=== PATIENT | female | born 1955 | race Caucasian/White ===

== ENCOUNTER 2022-05-31 18:55 | Emergency (ER) | payer MEDICARE, SELFPAY ==
[2022-05-31] VITALS (15 sets, daily range): BP systolic 180–218; BP diastolic 98–133; PULSE 90–105; RESP 16–22; TEMP 36.5; O2SAT 91–99; BMI 25.8
--- NOTE | 2022-05-31 19:03 | ECG_ITS ---
APPROVED REPORT Exam: Resting ECG HR:115 bpm ECG Measurements Heart Rate 115 AXES OR 150 P 52 QRSd 104 QRS 40 QT 348 T 51 QTc 416 Conclusion SINUS TACHYCARDIA INCOMPLETE RIGHT BUNDLE BRANCH BLOCK [90+ ms QRS DURATION, TERMINAL R IN V1/V2, 40+ ms S IN I/aVL/V4/V5/V6] ABNORMAL RHYTHM ECG UNCONFIRMED REPORT Electronically signed by : Marvin Blakely MD 06/02/2022 09:33:04
--- NOTE | 2022-05-31 19:14 | HMH.EDGENADL ---
ED Disposition Condition on Discharge: Fair - Critical Care Critical Care Time: No <Cullen Lugo - Last Filed: 05/31/22 20:12> Condition on Discharge: Fair - Critical Care Critical Care Time: No <Raimundo Nesbitt - Last Filed: 06/01/22 01:05> Clinical Impression: Vertigo Hypertension Qualifiers: Hypertension type: unspecified Qualified Code(s): I10 - Essential (primary) hypertension Disposition: Still a Patient Prescriptions: lisinopriL [Lisinopril] 10 mg PO DAILY #30 tab Prescription Printed Referrals: Provider,Referral, [Primary Care Provider] - Attestation: On 05/31/22, the high probability of a clinically significant, sudden or life threatening deterioration of the following system(s) required my full and direct attention, intervention and personal management. The time I documented below is in addition to time spent performing reported procedures but includes the following listed in this critical care notation. Medical Decision Making - Richard Inquiry Pt receiving controlled substance: No - Lab Data Result diagrams: 05/31/22 19:22 05/31/22 19:22 - Reevaluation(s) Time: 19:35 <Cullen Lugo - Last Filed: 05/31/22 20:12> - Lab Data Result diagrams: 05/31/22 19:22 05/31/22 19:22 <Raimundo Nesbitt - Last Filed: 06/01/22 01:05> Vital Signs: 05/31/22 18:56 05/31/22 19:07 05/31/22 19:13 Temperature 97.7 F Temperature Source Oral Pulse Rate 105 H 104 H Pulse Rate [Right] 104 H Respiratory Rate 18 19 Blood Pressure 213/126 H 218/133 H Blood Pressure [Right Arm] 218/133 H Blood Pressure Mean 168 165 Blood Pressure Mean [Right Arm] 161 02 Sat by Pulse Oximetry 98 99 99 Oxygen Delivery Method Room Air 05/31/22 19:30 05/31/22 19:36 05/31/22 20:30 Temperature Temperature Source Pulse Rate 94 H 90 95 H Pulse Rate [Right] Respiratory Rate 16 16 21 Blood Pressure 180/107 H 197/111 H 193/106 H Blood Pressure [Right Arm] Blood Pressure Mean 159 152 Blood Pressure Mean [Right Arm] 02 Sat by Pulse Oximetry 96 94 L 91 L Oxygen Delivery Method Room Air 05/31/22 21:00 05/31/22 21:30 05/31/22 22:00 Temperature Temperature Source Pulse Rate 90 91 H 98 H Pulse Rate [Right] Respiratory Rate 16 17 18 Blood Pressure 205/107 H 207/109 H 208/113 H Blood Pressure [Right Arm] Blood Pressure Mean Blood Pressure Mean [Right Arm] 02 Sat by Pulse Oximetry 98 95 94 L Oxygen Delivery Method Room Air Room Air Room Air 05/31/22 22:30 05/31/22 22:52 05/31/22 23:00 Temperature Temperature Source Pulse Rate 99 H 98 H 98 H Pulse Rate [Right] Respiratory Rate 20 22 21 Blood Pressure 205/98 H 217/117 H 205/108 H Blood Pressure [Right Arm] Blood Pressure Mean Blood Pressure Mean [Right Arm] 02 Sat by Pulse Oximetry 93 L 94 L 94 L Oxygen Delivery Method Room Air Room Air Room Air 05/31/22 23:30 05/31/22 23:45 05/31/22 23:54 Temperature Temperature Source Pulse Rate 95 H 105 H Pulse Rate [Right] Respiratory Rate 18 18 Blood Pressure 204/108 H 217/117 H 217/117 H Blood Pressure [Right Arm] Blood Pressure Mean Blood Pressure Mean [Right Arm] 02 Sat by Pulse Oximetry 95 93 L Oxygen Delivery Method Room Air Room Air 06/01/22 00:00 06/01/22 00:30 Temperature Temperature Source Pulse Rate 81 92 H Pulse Rate [Right] Respiratory Rate 15 20 Blood Pressure 185/102 H 201/105 H Blood Pressure [Right Arm] Blood Pressure Mean Blood Pressure Mean [Right Arm] 02 Sat by Pulse Oximetry 94 L 94 L Oxygen Delivery Method Room Air Room Air - Lab Data Lab Results 05/31/22 19:22: WBC 16.2 H, RBC 4.64, Hgb 13.2, Hct 43.2, MCV 93.0, MCH 28.4, MCHC 30.6 L, RDW 16.8, Plt Count 358, MPV 8.2, Neut % (Auto) 67.2, Lymph % (Auto) 26.0, Tift % (Auto) 4.3, Eos % (Auto) 1.6, Baso % (Auto) 0.9, Neut # (Auto) 10.9 H, Lymph # (Auto) 4.2, Tift # (Auto) 0.7, Eos # (Auto) 0.3, Baso # (Aut
--- NOTE | 2022-05-31 19:19 | PC.NURSE ---
at BS speaking with pt about POC.
--- NOTE | 2022-05-31 19:20 | CT_ITS ---
PROCEDURE INFORMATION: Exam: CT Head Without Contrast Exam date and time: 05/31/2022 7:41 PM Age: 66 years old Clinical indication: Other: High blood pressure; Additional info: Vertigo, vomiting, fingers tingling, high BP TECHNIQUE: Imaging protocol: Computed tomography of the head without contrast. Radiation optimization: All CT scans at this facility use at least one of these dose optimization techniques: automated exposure control; mA and/or kV adjustment per patient size (includes targeted exams where dose is matched to clinical indication); or iterative reconstruction. COMPARISON: No relevant prior studies available. FINDINGS: Brain: Normal brain without acute hemorrhage, midline shift, mass effect, or extra-axial collections. Mild intracranial atherosclerosis. Cerebral ventricles: Normal size to the ventricular system. Normal variant cavum septum pellucidum. Paranasal sinuses: Partially visualized right maxillary sinus retention cyst. Paranasal sinuses otherwise clear. Mastoid air cells: Mastoids clear. Orbital cavities: Normal orbits. Bones/joints: Normal bones. Soft tissues: Normal soft tissues. IMPRESSION: No acute intracranial pathology.
[2022-05-31 19:31] LABS: Basophils # 0.2 K/mm3 (0-0.2); Basophils % 0.9 % (0.1-2.0); Eosinophils # 0.3 K/mm3 (0.0-0.4); Eosinophils % 1.6 % (0.1-12.0); Hematocrit 43.2 % (37.0-47.0); Hemoglobin 13.2 g/dL (12.2-16.2); Lymphocytes # 4.2 K/mm3 (0.7-4.5); Mean Corpuscular HGB Conc 30.6 g/dL (31.8-35.4); Mean Corpuscular Hemoglobin 28.4 pg (27.0-31.2); Mean Platelet Volume 8.2 fl (7.4-10.4); Monocytes # 0.7 K/mm3 (0.1-1.0); Monocytes % 4.3 % (1.7-9.3); Neutrophils # 10.9 K/mm3 (1.8-7.8); Neutrophils % 67.2 % (37.0-80.0); Platelet Count 358 K/mm3 (142-424); Red Blood Count 4.64 M/mm3 (4.20-5.40); Red Cell Distribution Width 16.8 % (11.5-17.5); White Blood Count 16.2 K/mm3 (4.8-10.8)
[2022-05-31 19:39] LABS: MANUAL DIFFERENTIAL MANUAL DIFFERENTIAL (MANUAL DIFF)
[2022-05-31 19:43] LABS: Alanine Aminotransferase 16 U/L (12-78); Albumin Level 4.5 g/dl (3.5-5.0); Albumin/Globulin Ratio 1.4 (1.1-1.8); Alkaline Phosphatase 140 U/L (38-126); Anion Gap 12.3 mEq/L (5-15); Aspartate Amino Transferase 23 U/L (14-36); Blood Urea Nitrogen 13 mg/dl (7-17); Calcium 9.9 mg/dl (8.4-10.2); Carbon Dioxide 23 mmol/L (22.0-30.0); Chloride 108 mmol/L (98-107); Creatinine Clearance Estimated 65 mL/min (50-200); Estimated Glomerular Filt Rate 72 ml/min (>60); GFR (African American) 87 ML/MIN (>60); Globulin 3.2 g/dL (1.3-3.2); Glucose 145 mg/dl (74-100); Potassium 3.3 mmoL/L (3.5-5.1); Sodium 140 mmol/L (136-145); Total Protein,Serum 7.7 g/dl (6.3-8.2)
[2022-05-31 19:51] LABS: Bilirubin,Total 0.1 mg/dl (0.2-1.3)
[2022-05-31 19:52] LABS: Hypochromasia 2+; Lymphocytes % 24 % (10-50); Monocytes % 3 % (2-9); Neutrophils % 72 % (42-76); Platelet Estimate Normal; Total Cells Counted 100
[2022-05-31 19:56] LABS: Troponin I < 0.01 ng/ml (0.00-0.034)
--- NOTE | 2022-05-31 22:52 | PC.NURSE ---
PT ambulatory to bathroom with minimal assistance.
[2022-05-31 23:21] LABS: Troponin I < 0.01 ng/ml (0.00-0.034)
[2022-06-01] VITALS: BP 185/102; PULSE 81; RESP 15; O2SAT 94
[2022-06-01 00:30] VITALS: BP 201/105; PULSE 92; RESP 20; O2SAT 94
--- NOTE | 2022-06-01 00:46 | PC.NURSE ---
Pt resting in bed. Pt voiced no new needs or complaints. Visitor at BS.
[2022-06-01 01:17] VITALS: BP 176/100; PULSE 86; RESP 16; TEMP 37; O2SAT 97
== END 2022-06-01 01:21 | disposition still patient (30) ==
PROVIDERS: Emergency Provider Emergency Medicine
DX: I10 Essential (primary) hypertension (principal)
CPT/HCPCS: 70450; 80053; 84484; 85007; 85025; 93005; 96374; 96375; 99284; J2405

== ENCOUNTER 2023-05-20 19:40 | Emergency (ER) | payer MEDICARE, SELFPAY ==
[2023-05-20 19:41] VITALS: BP 154/84; PULSE 77; RESP 16; TEMP 36.6; O2SAT 95; BMI 25.8
--- NOTE | 2023-05-20 20:04 | EXP.UTC ---
Discharge Plan Disposition Patient Disposition: Home, Self-Care Condition: Good Prescriptions Prescriptions: New amoxicillin [amoxicillin] 875 mg tablet 875 mg PO Q12H Qty: 20 0RF methylprednisolone 4 mg Tablets,Dose Pack 4 mg PO DIRECTED Qty: 21 0RF No Action lisinopril 10 MG tablet 10 mg PO DAILY Qty: 30 0RF Referrals Follow up/Referrals: Marvin Blakely MD [Primary Care Provider] - See instructions Activity Restrictions/Add. Instructions Additional Instructions/Restrictions: Drink plenty of fluids. Take tylenol or ibuprofen for pain or fever. Take the medications as directed. Follow up with your regular doctor. GO TO THE ER FOR ANY WORSENING SYMPTOMS Throw your tooth brush away and get a new one. Clinical Impressions Clinical Impression: Strep throat Instructions Patient Instructions: Strep Throat, DI for Strep Throat Discharge ED Provider: Saw Johnson [facility] General Stated complaint: trouble eating, neck swollen Mode of Arrival: Ambulatory Source of Information: Patient Limitations: No Limitations Time Seen by Provider: 05/20/23 20:04 Description of Symptoms (Recalled from Triage Doc. by RN): Patient reports sore throat and left ear pain and swollen neck for a couple of days. HEENT Symptoms (Recalled from RN notes): Yes Resp Symptoms (Recalled from RN notes): No Skin Symptoms (Recalled from RN notes): No MS Symptoms (Recalled from RN notes): No Functional Status (Recalled from RN notes): wnl History of Present Illness Provider Complaint: She states that for the past 2 days she has had right ear pain, sore throat and swelling of the lymph nodes in her neck. Related Data Previous Rx's Medication Instructions Recorded lisinopril 10 mg tablet 10 mg PO DAILY #30 tabs 06/01/22 amoxicillin 875 mg tablet 875 mg PO Q12H #20 tabs 05/20/23 methylprednisolone 4 mg tablets in 4 mg PO DIRECTED #21 tabs 05/20/23 a dose pack Allergies Allergy/AdvReac Type Severity Reaction Status Date / Time No Known Allergies Allergy Verified 05/31/22 19:24 Worker's Comp Is this a Worker's Comp case?: No [facility] Disclaimer: The information contained in this section may have been updated after the patient was seen, as this information can be updated by other users. Social History Smoking Status: Former smoker alcohol intake: never current occupational status: retired Travel in the last 8 weeks: None ROS Obtained: Yes All systems reviewed & no additional complaints except as documented Constitutional Constitutional: Reports chills and Reports fever(s) Eyes Eyes: Denies eye discharge ENT Ears, Nose, Mouth, and Throat: Reports as per HPI Cardiovascular Cardiovascular: Denies chest pain Respiratory Respiratory: Denies chest congestion and Reports cough Gastrointestinal Gastrointestingal: Reports nausea; Denies abdominal pain, constipation, cramping, diarrhea or vomiting Musculoskeletal Musculoskeletal: Denies arthralgias Integumentary/Breasts Skin/Breast: Denies rash Neurologic Neurologic: Denies paresthesias Physical Exam General General appearance: alert and in no apparent distress Head Head exam: atraumatic, normocephalic and normal inspection Eye Eye exam: Present normal appearance, PERRL and EOMI ENT ENT exam: Present mucous membranes moist and normal external ear exam Expanded ENT Exam TM/Canal exam: Bilateral TM: erythema and bulging Nose exam: Absent sinus tenderness Mouth exam: Present normal external inspection; Absent drooling Teeth exam: Present normal inspection Throat exam: Present tonsillar erythema, tonsillomegaly and tonsillar exudate Neck Neck exam: Present normal inspection, full ROM and trachea midline; Absent tenderness, meningismus or lymphadenopathy Chest Chest inspection: Present normal inspection and symmetric chest wall rise; Absent tenderness Respiratory Respiratory exam
[2023-05-20 20:05] LABS: UTC Strep Screen (Rapid) Positive (Negative)
[2023-05-20 20:15] VITALS: BP 154/84; PULSE 77; RESP 16; TEMP 36.6; O2SAT 95
== END 2023-05-20 20:16 | disposition home or self-care (01) ==
PROVIDERS: Emergency Provider Nurse Practitioner Family; PCP Internal Medicine Adolescent Medicine
DX: J02.0 Streptococcal pharyngitis (principal); H92.01 Otalgia, right ear; Z87.891 Personal history of nicotine dependence
CPT/HCPCS: 87880; 99204; 99212; G0463